=== PATIENT | female | born 1980 | race Caucasian/White ===

== ENCOUNTER 2017-03-20 09:58 | Emergency (ER) | payer BC, SELFPAY ==
[2017-03-20 10:51] LABS: #Monocytes 0.4 thou/uL (0.11-0.59); #Neutrophils 4.6 thou/uL (1.40-6.50); %Basophils 0.7 % (0.0-1.0); %Eosinophils 0.7 % (0.0-10.0); %Lymphocytes 16.7 % (21.0-51.0); %Monocytes 6.1 % (0.0-10.0); %Neutrophils 75.9 % (42.0-75.0); Hemoglobin 12.4 g/dL (12.0-16.0); Mean Corpuscular HGB CONC 32.7 g/dL (32.0-36.0); Mean Corpuscular Hemoglobin 29.7 pg (27.0-31.0); Mean Corpuscular Volume 90.9 fl (81.0-99.0); Mean Platelet Volume 10.6 fL (7.4-10.4); Platelet Count 235 thou/uL (130-400); RBC Distribution Width 12.8 % (11.5-14.5); Red Blood Cell (RBC) Count 4.17 mill/uL (4.20-5.40)
[2017-03-20 11:08] LABS: ALT (SGPT) 385 U/L (8-55); AST (SGOT) 342 U/L (5-34); Albumin 3.9 g/dL (3.5-5.0); Alkaline Phosphatase 386 U/L (40-150); Anion Gap 13 mmol/L (10-20); BUN (Urea Nitrogen) 7 mg/dL (7.0-18.7); Bilirubin, Total 1.6 mg/dL (0.2-1.2); Calc. Creatinine Clearance 0 mL/min (70-130); Calcium 9.2 mg/dL (7.8-10.44); Carbon Dioxide 27 mmol/L (22-29); Chloride 101 mmol/L (98-107); Estimated GFR-MDRD Greater than 90; Globulin 3.3 g/dL (2.4-3.5); Glucose 107 mg/dL (70-105); Potassium 3.9 mmol/L (3.5-5.1); Protein, Total 7.2 g/dL (6.0-8.3); Sodium 137 mmol/L (136-145)
--- NOTE | 2017-03-20 11:09 | RAD ---
PA AND LATERAL VIEWS OF CHEST: HISTORY: Chest pain. FINDINGS: The heart size is normal. The lungs are well expanded without focal areas of consolidation, pneumoth orax, or pleural effusions. IMPRESSION: No radiographic evidence of acute cardiopulmonary process. POS: [facility]
[2017-03-20 11:10] LABS: CKMB 0.8 ng/mL (0-6.6); Troponin I Less than 0.010 ng/mL (< 0.028)
[2017-03-20 11:18] LABS: BHCG - Serum Negative (NEGATIVE); Pregs Control Bar Appear? YES (CONTROL BAR)
[2017-03-20 11:22] LABS: Bilirubin Negative (Negative); Blood, Urine Large (Negative); Clarity Clear (Clear); Glucose, Urine (Dipstick) Negative (Negative); Leukocyte Negative (Negative); Nitrite Negative (Negative); Protein, Urine (Dipstick) Negative (Neg-Trace); pH, Urine 7.5 (5.0-9.0)
[2017-03-20 11:33] LABS: Bacteria/HPF None Seen HPF (None Seen); RBC/HPF 21-50 HPF (0-3); Squamous Epithelial 0-3 HPF (0-3); WBC/HPF 0-3 HPF (0-3)
== END 2017-03-20 11:45 | disposition home or self-care (01) ==
LOC: NAV ERS 09:58
DX: I10 Essential (primary) hypertension (principal); K75.9 Inflammatory liver disease, unspecified; F41.9 Anxiety disorder, unspecified; F17.210 Nicotine dependence, cigarettes, uncomplicated; Z79.899 Other long term (current) drug therapy
CPT/HCPCS: 71020; 80053; 81003; 81015; 82553; 84484; 84703; 85025; 85379; 93005

== ENCOUNTER 2018-06-20 16:56 | Emergency (ER) | payer SELFPAY ==
[~2018-06-20 16:56] MED LIST: Iopamidol 370 76% 100 ML VIAL ONE
[2018-06-20] MEDS ORDERED: Sodium Chloride 0.9% 1,000 ML ONE ×3 (17:51→19:44)
[2018-06-20] MEDS ORDERED: Morphine 4 MG/ML VIAL ONE (17:52)
[2018-06-20] MEDS ORDERED: Promethazine HCl 25 MG/ML VIAL ONE (17:53)
[2018-06-20 18:26] LABS: ALT (SGPT) 171 U/L (8-55); AST (SGOT) 67 U/L (5-34); Albumin 4.1 g/dL (3.5-5.0); Alkaline Phosphatase 303 U/L (40-150); Anion Gap 18 mmol/L (10-20); BUN (Urea Nitrogen) 9 mg/dL (7.0-18.7); Bilirubin, Total 4.9 mg/dL (0.2-1.2); CK (CPK) 22 U/L (29-168); Calc. Creatinine Clearance 0 mL/min (70-130); Calcium 10.5 mg/dL (7.8-10.44); Carbon Dioxide 26 mmol/L (22-29); Chloride 95 mmol/L (98-107); Estimated GFR-MDRD 87; Globulin 3.9 g/dL (2.4-3.5); Glucose 147 mg/dL (70-105); Lipase 1199 U/L (8-78); Sodium 136 mmol/L (136-145)
[2018-06-20 18:28] LABS: Potassium 2.9 mmol/L (3.5-5.1)
[2018-06-20 18:35] LABS: Band 4 % (5-11); Hemoglobin 15.5 g/dL (12.0-16.0); Lymphocytes 1 % (21-51); MDiff Complete? YES; Mean Corpuscular HGB CONC 31.9 g/dL (32.0-36.0); Mean Corpuscular Hemoglobin 29.7 pg (27.0-31.0); Mean Corpuscular Volume 93.3 fL (78.0-98.0); Mean Platelet Volume 7.9 fL (7.4-10.4); Monocytes 5 % (0-10); Neutrophil 90 % (42-75); Platelet Count 375 thou/uL (130-400); RBC Distribution Width 13.2 % (11.5-14.5); Red Blood Cell (RBC) Count 5.22 mill/uL (4.20-5.40); White Blood Cell (WBC) Count 29.4 thou/uL (4.8-10.8)
[2018-06-20 18:41] LABS: Bilirubin Moderate (Negative); Blood, Urine Small (Negative); Glucose, Urine (Dipstick) Negative (Negative); Leukocyte Trace (Negative); Nitrite Negative (Negative); Protein, Urine (Dipstick) 100 mg/dL (Neg-Trace); Specific Gravity, Urine 1.015 (1.005-1.030); Urobilinogen 0.2 mg/dL (0.2-1.0)
[2018-06-20 18:42] LABS: Clarity Hazy (Clear)
[2018-06-20 18:43] LABS: Pregnancy Test - Urine (BHCG) Negative (Negative); Pregu Control Background? CLEAR/WHITE (CLR/WHITE); Pregu Control Bar Appear? YES (CONTROL BAR); Specific Gravity 1.015 (1.002-1.036)
[2018-06-20 18:49] LABS: Bacteria/HPF 4+ HPF (None Seen); RBC/HPF None Seen HPF (0-3); Squamous Epithelial 0-3 HPF (0-3); WBC/HPF 0-3 HPF (0-3)
[2018-06-20] MEDS ORDERED: Fentanyl 100 MCG/2 ML VIAL ONE (19:21)
--- NOTE | 2018-06-20 20:08 | CT ---
ABDOMEN CT WITH CONTRAST PELVIC CT WITH CONTRAST: History: Right upper quadrant abdominal pain. Cholecystectomy at age 14. Elevated white blood cells. Comparison: None. FINDINGS: ABDOMEN CT: Calcified right hilar lymph nodes. Calcified granuloma in the right lower lobe measuring 0.7 cm. Trac e right sided effusion with adjacent lung parenchymal changes which are presumed to be chronic. Left lung base, unremarkable. Heart size normal. Normal caliber aorta. Intra and extrahepatic portal vein is patent. 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 There appears to be nonspecific fluid in the gallbladder fossa an d portal confluence. The hepatic parenchyma does not have any masses. Spleen, pancreas, and adrenal glands have appropriate enhancement. Symmetric enhancement of the kidneys. Bilaterally, no obstructive uropathy. There is asymmetric promi nence of the right ureter with mild ureteral enhancement. There is fluid in Cronin's pouch, right and left paracolic gutters. Additionally, there is fluid ad jacent to the curvature of the stomach and in the peristomach region. No gastrohepatic, retrocrural lymphadenopathy. There appears to be an enlarged periportal lymph node measuring 1.9 x 1.6 cm. No mesenteric mass, lymphadenopathy, or free air. Fluid in the abdominal mesentery is noted. Limited evaluation of the alimentary canal due to lack of oral contrast. Grossly the gastric mucosa a nd duodenum are unremarkable. There appears to be mild dilatation of the mucosal thickening involving jejunal loops in the left upper quadrant. No evidence of high grade bowel obstruction. A component o f partial obstruction or ileus should be considered given mild dilatation. Distal small bowel loops a re decompressed. Limited evaluation of the ileocecal junction as well as the cecal apex. Appendix is difficult to appreciate. CT PELVIS: Uterus and adnexal structures are unremarkable. There is complex fluid in the pelvis. No mass, lympha denopathy, or free air. Unremarkable urinary bladder. No lytic or blastic lesions in the osseous stru ctures. IMPRESSION: 1. Free fluid in the abdomen and pelvis, complex. 2. Prominent small bowel loops in the left upper quadrant with mucosal thickening. Correlate for ileu s versus partial obstruction versus a focal enteritis. 3. Nonspecific fluid in the portal confluence and gallbladder fossa. 4. Enlarged periportal lymph node, presumed to be reactive. 5. Asymmetric prominence and enhancement of the right ureter. Correlate for ascending urinary tract i nfection. No CT evidence of pyelonephritis. 6. Limited evaluation of the alimentary canal and fluid in the cecal apex and evaluation for the appe ndix. If there is concern for alimentary pathology, repeat CT with oral contrast is recommended. POS: [facility]
== END 2018-06-20 20:01 | disposition short-term general hospital (02) ==
LOC: NAV ERS 16:56
DX: K85.90 Acute pancreatitis without necrosis or infection, unspecified (principal); F41.9 Anxiety disorder, unspecified; F17.210 Nicotine dependence, cigarettes, uncomplicated; Z79.899 Other long term (current) drug therapy
CPT/HCPCS: 51701; 74177; 80053; 81003; 81015; 81025; 82550; 83605; 83690; 85025; 96361; 96365; 96375; A4353; J2270; J2550; J3010; J7050; Q9967

== ENCOUNTER 2020-10-18 19:53 | Emergency (ER) | payer MEDICAID ==
[2020-10-18] MEDS ORDERED: Ibuprofen 800 MG TAB ONE (20:05)
[2020-10-18] MEDS ORDERED: Ondansetron ODT 4 MG TAB ONE (20:05)
[2020-10-19 22:22] LABS: SARS-CoV-2 PCR by NAA Not Detected (NotDetected)
== END 2020-10-18 20:26 | disposition home or self-care (01) ==
LOC: NAV ERS 19:53
DX: R05 Cough (principal); R51.9 Headache, unspecified; R09.89 Other specified symptoms and signs involving the circulatory and respiratory systems; R11.0 Nausea; Z20.822 Contact with and (suspected) exposure to COVID-19; F41.9 Anxiety disorder, unspecified; F17.210 Nicotine dependence, cigarettes, uncomplicated; Z71.6 Tobacco abuse counseling
CPT/HCPCS: 99406; Q0162; U0003; U0005

== ENCOUNTER 2024-04-28 18:22 | Emergency (ER) | payer OTHER ==
[2024-04-28] MEDS ORDERED: Acetaminophen 325 MG TAB ONE (18:46)
== END 2024-04-28 20:05 | disposition home or self-care (01) ==
LOC: NAV ERS 18:22
DX: S93.402A Sprain of unspecified ligament of left ankle, initial encounter (principal); F17.210 Nicotine dependence, cigarettes, uncomplicated; X50.9XXA Other and unspecified overexertion or strenuous movements or postures, initial encounter
CPT/HCPCS: 99283